=== PATIENT | female | born 1990 | race Caucasian/White ===

== ENCOUNTER 2017-01-07 23:48 | Emergency (ER) | payer OTHER ==
[~2017-01-07 23:48] MED LIST: SENN15TA PO
[2017-01-08 00:07] VITALS: BP 163/94
--- NOTE | 2017-01-08 00:27 | PHYS DOC ---
Past History Past Medical History: UTI Past Surgical History: , Tonsillectomy Smoking: Less than 1pk/day Alcohol Use: None Drug Use: None Adult General Chief Complaint Chief Complaint: ABDOMINAL PAIN HPI HPI Patient is a 26 year old female who presents with lower abdominal pain. Started on Saturday. No vaginal discharge. LMP 2 weeks ago. No fever. Had vomiting once yesterday and 4-5 loose stools yesterday; none today. No recent travel. Little sore throat. Review of Systems Review of Systems Constitutional: Denies fever or chills Eyes: Denies change in visual acuity, redness, or eye pain HENT: Denies nasal congestion; mild sore throat Respiratory: Denies cough or shortness of breath Cardiovascular: No chest pain GI: see HPI : Denies dysuria or hematuria Musculoskeletal: Denies back pain or joint pain Integument: Denies rash or skin lesions Neurologic: Denies headache, focal weakness or sensory changes Allergies Allergies Allergies Coded Allergies Type Severity Reaction Last Updated Verified cephalexin Allergy Severe "I GET HIVES REALLY BAD" 04/25/14 No Physical Exam Physical Exam Constitutional: Well developed, well nourished, no acute distress, non-toxic appearance. HENT: Normocephalic, atraumatic, bilateral external ears normal, oropharynx moist, no oral exudates, nose normal. Eyes: PERRLA, EOMI, conjunctiva normal, no discharge. Neck: Normal range of motion, no tenderness, supple, no stridor. Cardiovascular:Heart rate regular rhythm, no murmur Lungs & Thorax: Bilateral breath sounds clear to auscultation Abdomen: Bowel sounds normal, soft, no tenderness, no masses, no pulsatile masses. Minimal suprapubic pain on palpation Skin: Warm, dry, no erythema, no rash. Back: No tenderness, no CVA tenderness. Extremities: No tenderness, no cyanosis, no clubbing, ROM intact, no edema. Neurologic: Alert and oriented X 3, normal motor function, normal sensory function, no focal deficits noted. Psychologic: Affect normal, judgement normal, mood normal. Current Patient Data Vital Signs Vital Signs Date Time Temp Pulse Resp B/P (MAP) Pulse Ox O2 Delivery O2 Flow Rate FiO2 01/08/17 00:07 98.3 99 20 100 Room Air Lab Results Laboratory Tests Test 01/08/17 00:25 01/08/17 00:35 Urine Collection Type Unknown Urine Color Yellow Urine Clarity Hazy Urine pH 6.0 Urine Specific [place] 1.025 Urine Protein Trace Urine Glucose (UA) Neg mg/dL Urine Ketones (Stick) Neg mg/dL Urine Blood Neg Urine Nitrite Neg Urine Bilirubin Neg Urine Urobilinogen Dipstick 0.2 mg/dL Urine Leukocyte Esterase Neg Urine RBC 0 /HPF Urine WBC Rare /HPF Urine Squamous Epithelial Cells Mod /LPF Urine Bacteria 0 /HPF Bedside Urine HCG, Qualitative hcg negative Course & Med Decision Making Course & Med Decision Making Evaluated patient. No evidence of acute surgical abdomen on exam. Urine sent. At 0130 AM: UA negative and UCG negative. Repeat abdominal exam shows no rebound or guarding. She states she has had intermittent left lower quadrant pain for months. 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 return precautions given. Toradol 60 IM (she drove herself) Dragon Disclaimer Dragon Disclaimer This chart was dictated in whole or in part using Voice Recognition software in a busy, high-work load, and often noisy Emergency Department environment. It may contain unintended and wholly unrecognized errors or omissions. Departure Departure: Impression: Primary Impression: Abdominal pain Disposition: 01 HOME, SELF-CARE Condition: STABLE Referrals: LEANDRO RAMSEY (PCP) Patient Instructions: Abdominal Pain (Nonspecific) Scripts Naproxen (NAPROSYN) 500 Mg Tablet 1 TAB PO BID, #20 TAB Prov: OTIS DONALDSON MD 01/08/17 OTIS DONALDSON MD Jan 08, 2017 00:27
[2017-01-08 01:13] LABS: BILIRUBIN,URINE NEG (NEG); CLARITY,URINE HAZY; COLOR,URINE YELLOW; GLUCOSE,URINE NEG (NEG); NITRITE,URINE NEG (NEG); RBC,URINE 0 /HPF (0-2); UROBILINOGEN,URINE 0.2 mg/dL (0.2 mg/dL)
[2017-01-08 01:14] LABS: BACTERIA,URINE 0 /HPF (0-FEW); SQUAMOUS EPITHELIAL CELL,UR MOD /LPF; WBC,URINE RARE /HPF (0-4)
[2017-01-08] MEDS ORDERED: NAPR500T PO (01:30)
[2017-01-08] MEDS ORDERED: KETOROLAC 60 MG/2 ML VIAL. IM ONE (02:00)
== END 2017-01-08 01:40 | disposition home or self-care (01) ==
LOC: ER 23:48
DX: R10.30 Lower abdominal pain, unspecified (principal); R11.10 Vomiting, unspecified; R19.7 Diarrhea, unspecified; F17.200 Nicotine dependence, unspecified, uncomplicated; Z87.440 Personal history of urinary (tract) infections; Z88.1 Allergy status to other antibiotic agents
CPT/HCPCS: 81001; 81025; 96372; 99283; J1885

== ENCOUNTER 2018-02-25 18:45 | Emergency (ER) | payer OTHER ==
[~2018-02-25] VITALS: Ht 167.6 cm; Wt 112.7 kg
[~2018-02-25 18:45] MED LIST changes: +NAPR-683 PO
--- NOTE | 2018-02-25 18:48 | ED.ADGEN ---
Past History Past Medical History: UTI Past Surgical History: , Tonsillectomy Smoking: Less than 1pk/day Alcohol Use: None Drug Use: None Adult General Chief Complaint Chief Complaint ".. I got this rash all over... and it is itching.. and I think I may be again for the third time.." HPI HPI Patient is a 27 year old female who presents with above hx and complaints contact dermatitis on arms and legs. Patient has used a new aerosolized mist and did apply some to her skin. This before rash was noted on her arms and legs. Patient also reports she has not had a period for a month. Patient concerned she may be . No other changes in foods. Personal hygiene products or exposures. Review of Systems Review of Systems Constitutional: Denies fever or chills [] Eyes: Denies change in visual acuity, redness, or eye pain [] HENT: Denies nasal congestion or sore throat [] Respiratory: Denies cough or shortness of breath [] Cardiovascular: No additional information not addressed in HPI [] GI: Denies abdominal pain, nausea, vomiting, bloody stools or diarrhea [] : Denies dysuria or hematuria complaints she has not had a period past month Musculoskeletal: Denies back pain or joint pain [] Integument: Complains of a contact dermatitis on arms and legs Neurologic: Denies headache, focal weakness or sensory changes [] Endocrine: Denies polyuria or polydipsia [] All other systems were reviewed and found to be within normal limits, except as documented in this note. Family History Family History Noncontributory Current Medications Current Medications Current Medications Medications (Trade) Dose Ordered Sig/Zuri Start Time Stop Time Status Last Admin Dose Admin Famotidine (Pepcid) 20 mg 1X ONCE 02/25/18 19:15 02/25/18 19:16 DC 02/25/18 19:23 20 MG Nitrofurantoin Macrocrystals (Macrobid) 100 mg BID 02/25/18 21:00 UNV Allergies Allergies Allergies Coded Allergies Type Severity Reaction Last Updated Verified cephalexin Allergy Severe "I GET HIVES REALLY BAD" 04/25/14 No Physical Exam Physical Exam Constitutional: Well developed, well nourished, no acute distress, non-toxic appearance. [] HENT: Normocephalic, atraumatic, bilateral external ears normal, oropharynx moist, no oral exudates, nose normal. [] Eyes: PERRLA, EOMI, conjunctiva normal, no discharge. [] Neck: Normal range of motion, no tenderness, supple, no stridor. [] Cardiovascular:Heart rate regular rhythm, no murmur [] Lungs & Thorax: Bilateral breath sounds clear to auscultation [] Abdomen: Bowel sounds normal, soft, no tenderness, no masses, no pulsatile masses. [] Old scar Skin: Warm, dry, no erythema, contact dermatitis on arms and legs rash. [] Back: No tenderness, no CVA tenderness. [] Extremities: No tenderness, no cyanosis, no clubbing, ROM intact, no edema. [] Neurologic: Alert and oriented X 3, normal motor function, normal sensory function, no focal deficits noted. [] Psychologic: Affect anxious, judgement normal, mood normal. [] Current Patient Data Vital Signs Vital Signs Date Time Temp Pulse Resp B/P (MAP) Pulse Ox O2 Delivery O2 Flow Rate FiO2 02/25/18 19:06 98.3 113 18 99 Room Air Lab Results Laboratory Tests Test 02/25/18 18:22 02/25/18 18:54 POC Urine HCG, Qualitative hcg positive (Negative) Urine Collection Type Clean catch Urine Color Yellow Urine Clarity Hazy Urine pH 7.0 Urine Specific [place] 1.020 Urine Protein Neg (NEG-TRACE) Urine Glucose (UA) Neg mg/dL (NEG) Urine Ketones (Stick) Trace mg/dL (NEG) Urine Blood Trace (NEG) Urine Nitrite Neg (NEG) Urine Bilirubin Neg (NEG) Urine Urobilinogen Dipstick 1 mg/dL (0.2 mg/dL) Urine Leukocyte Esterase Trace (NEG) Urine RBC 1-2 /HPF (0-2) Urine WBC 1-4 /HPF (0-4) Urine Squamous Epithelial Cells Mod /LPF Urine Bacteria 0 /HPF (0-FEW) Urine Mucus Slight /LPF Urine Opiates Screen Neg (NEG) Urine Methadone Screen Neg (NEG) Urine Barbiturates Neg (NEG) Urine Phencyclidine Screen Neg (NEG) Urine Amphetamine/Methamphetamine Neg (NEG) Urine Benzodiazepines Screen Neg (NEG) Urine Cocaine Screen Neg (NEG) Urine Cannabinoids Screen Neg (NEG) Urine Ethyl Alcohol Neg (NEG) EKG EKG [] Radiology/Procedures Radiology/Procedures [] Course & Med Decision Making Course & Med Decision Making Pertinent Labs and Imaging studies reviewed. (See chart for details). Patient has stopped using the new aerosolizer and not apply to skin. Patient to take vitamins. Patient may take Tylenol for discomfort. Patient take Benadryl 4 times a day for itching. Patient take Zantac 150 twice day for 10 days. Follow-up primary care. Return if any concerns. Patient issued a prescription for Macrodantin for 3 days. Patient have repeat urine check on follow-up primary care or [employer]AIL PER[employer] SPECIALIST [] Final Impression Final Impression 1. Contact dermatitis 2. Positive urine test for 3. Possible UTI.[] Dragon Disclaimer Dragon Disclaimer This electronic medical record was generated, in whole or in part, using a voice recognition dictation system. JEN HALL MD Feb 25, 2018 18:47
[2018-02-25 19:06] VITALS: BP 138/72
[2018-02-25] MEDS ORDERED: FAMOTIDINE 20 MG TABLET PO ONE (19:15)
[2018-02-25] MEDS ORDERED: PNV1TABL34 PO (19:29)
[2018-02-25] MEDS ORDERED: RANI150T21 PO (19:29)
[2018-02-25 19:30] LABS: BARBITURATES NEG (NEG); BENZODIAZEPINES NEG (NEG); CANNABINOIDS NEG (NEG); COCAINE NEG (NEG); METHADONE NEG (NEG); OPIATES NEG (NEG); PHENCYCLIDINE NEG (NEG)
[2018-02-25 19:31] LABS: AMPHETAMINE/METHAMPHETAMINE NEG (NEG); BILIRUBIN,URINE NEG (NEG); CLARITY,URINE HAZY; COLOR,URINE YELLOW; GLUCOSE,URINE NEG (NEG)
[2018-02-25 19:32] LABS: BACTERIA,URINE 0 /HPF (0-FEW); NITRITE,URINE NEG (NEG); SQUAMOUS EPITHELIAL CELL,UR MOD /LPF; UROBILINOGEN,URINE 1 mg/dL (0.2 mg/dL)
[2018-02-25] MEDS ORDERED: NITR100C62 PO (19:39)
[2018-02-25] MEDS ORDERED: NITROFURANTOIN MONOHYD/M-CRYST 100 MG CAPSULE. PO ONE (20:00)
[2018-02-25] MEDS ORDERED: NITROFURANTOIN MONOHYD/M-CRYST 100 MG CAPSULE. PO SCH (21:00)
== END 2018-02-25 19:48 | disposition home or self-care (01) ==
LOC: ER 18:45
DX: L25.9 Unspecified contact dermatitis, unspecified cause (principal); Z32.01 Encounter for pregnancy test, result positive; F17.200 Nicotine dependence, unspecified, uncomplicated; Z87.440 Personal history of urinary (tract) infections; Z98.890 Other specified postprocedural states; Z88.1 Allergy status to other antibiotic agents
CPT/HCPCS: 36415; 80307; 81001; 81025; 87086; 99284; G0479

== ENCOUNTER 2018-10-19 14:44 | Emergency (ER) | payer OTHER ==
[~2018-10-19] VITALS: Ht 167.6 cm; Wt 88.5 kg
[~2018-10-19 14:44] MED LIST changes: +NITR100C62 PO; +PNV1TABL34 PO; +RANI150T21 PO
[2018-10-19 14:56] VITALS: BP 136/75
--- NOTE | 2018-10-19 15:12 | PHYS DOC ---
Past History Past Medical History: No Pertinent History Past Surgical History: , Tonsillectomy, Other Smoking: Less than 1pk/day Alcohol Use: Rarely Drug Use: None Adult General Chief Complaint Chief Complaint: WOUND CHECK HPI HPI Patient is a 89-year-old female presents with drainage from incision site. Patient has on 11 Oct 2018. Reports that the drainage happened just prior to arrival. There was "a lot" and that it appeared milky in color. Denies any bleeding. Notes that her temperature was 99. Drainage has subsequently improved. Nothing seems to make it better or worse. Patient denies any significant pain. Denies any redness.[] Review of Systems Review of Systems Constitutional: Denies fever or chills [] Eyes: Denies change in visual acuity, redness, or eye pain [] HENT: Denies nasal congestion or sore throat [] Respiratory: Denies cough or shortness of breath [] Cardiovascular: No chest pain or palpitations[] GI: Denies abdominal pain, nausea, vomiting, bloody stools or diarrhea [] : Denies dysuria or hematuria [] Musculoskeletal: Denies back pain or joint pain [] Integument: Denies rash or skin lesions, see history of present illness [] Neurologic: Denies headache, focal weakness or sensory changes [] Endocrine: Denies polyuria or polydipsia [] All other systems were reviewed and found to be within normal limits, except as documented in this note. Allergies Allergies Allergies Coded Allergies Type Severity Reaction Last Updated Verified cephalexin Allergy Severe "I GET HIVES REALLY BAD" 04/25/14 No Physical Exam Physical Exam Constitutional: Well developed, well nourished, no acute distress, non-toxic appearance. [] HENT: Normocephalic, atraumatic, bilateral external ears normal, oropharynx moist, no oral exudates, nose normal. [] Eyes: PERRLA, EOMI, conjunctiva normal, no discharge. [] Neck: Normal range of motion, no tenderness, supple, no stridor. [] Cardiovascular:Heart rate regular rhythm, no murmur [] Lungs & Thorax: Bilateral breath sounds clear to auscultation [] Abdomen: Bowel sounds normal, soft, no tenderness, no masses, no pulsatile masses. [] Skin: Warm, dry, no erythema, no rash. IncisionC-section, appears clean and dry. There is significant drainage, no wound dehiscence noted.. [] Back: No tenderness, no CVA tenderness. [] Extremities: No tenderness, no cyanosis, no clubbing, ROM intact, no edema. [] Neurologic: Alert and oriented X 3, normal motor function, normal sensory function, no focal deficits noted. [] Psychologic: Affect normal, judgement normal, mood normal. [] Current Patient Data Vital Signs Vital Signs Date Time Temp Pulse Resp B/P (MAP) Pulse Ox O2 Delivery O2 Flow Rate FiO2 10/19/18 14:56 98.5 72 20 99 Room Air EKG EKG [] Radiology/Procedures Radiology/Procedures PROCEDURE: ABDOMEN LTD INDICATION: Drainage from section site COMPARISON: None. FINDINGS: Focused ultrasound images obtained through the subcutaneous soft tissues at the section incision site. No drainable fluid collection is identified within the subcutaneous fat at the incision site. IMPRESSION: 1. No drainable fluid collection at the subcutaneous fat of the section incision site.[] Course & Med Decision Making Course & Med Decision Making Pertinent Labs and Imaging studies reviewed. (See chart for details) ED course: Patient arrived, was placed in bed, and and tolerated exam well. She was transferred to and from [facility] with any complications. After return of the laboratory and imaging. His, these were discussed with the patient voiced understanding. All questions were answered. Patient was discharged in improved condition. Medical decision making:: Believe the fluid to be a seroma which does not appear on ultrasound. No evidence of wound dehiscence. No evidence of infection.[] Dragon Disclaimer Dragon Disclaimer This electronic medical record was generated, in whole or in part, using a voice recognition dictation system. Departure Departure: Impression: Primary Impression: Visit for wound check Additional Impression: Seroma Disposition: HOME, SELF-CARE Condition: IMPROVED Referrals: PCP,NO (PCP) Patient Instructions: Wound Care, [id number] Additional Instructions: Follow-up with the [facility] [employer] [employer] that performed the procedure tomorrow. Return to the ER if worsening pain, more fluid leaks, increasing redness, you develop a fever of more than 101, or any other concerns. Problem Qualifiers GILDARDO RICHEY DO October 19, 2018 15:12
[2018-10-19 15:37] LABS: BASO % 0 % (0-3); EOS # 0.1 x10^3/uL (0.0-0.7); EOS % 1 % (0-3); HEMATOCRIT 32.1 % (36.0-47.0); HEMOGLOBIN 10.6 g/dL (12.0-15.5); LYMPH # 3.4 x10^3/uL (1.0-4.8); LYMPH % 34 % (24-48); MEAN CORPUSCULAR HEMOGLOBIN 27 pg (25-35); MEAN CORPUSCULAR HGB CONC 33 g/dL (31-37); MEAN CORPUSCULAR VOLUME 83 fL (79-100); MONO % 10 % (0-9); NEUT # 5.4 x10^3uL (1.8-7.7); NEUT % 54 % (31-73); PLATELET COUNT 424 x10^3/uL (140-400); RED BLOOD COUNT 3.87 x10^6/uL (3.50-5.40); RED CELL DISTRIBUTION WIDTH 13.9 % (11.5-14.5)
[2018-10-19 15:51] LABS: CALCIUM 8.8 mg/dL (8.5-10.1); CREATININE 0.8 mg/dL (0.6-1.0); GFR 84.8; POTASSIUM 4.1 mmol/L (3.5-5.1)
--- NOTE | 2018-10-19 18:02 | RAD ---
INDICATION: Drainage from section site COMPARISON: None. FINDINGS: Focused ultrasound images obtained through the subcutaneous soft tissues at the section incision site. No drainable fluid collection is identified within the subcutaneous fat at the incision site. IMPRESSION: 1. No drainable fluid collection at the subcutaneous fat of the section incision site. Electronically signed by: Sourav Avila MD (10/19/2018 5:59 PM) [facility]
== END 2018-10-19 18:27 | disposition home or self-care (01) ==
LOC: ER 14:44
DX: Z48.01 Encounter for change or removal of surgical wound dressing (principal); K91.872 Postprocedural seroma of a digestive system organ or structure following a digestive system procedure; F17.200 Nicotine dependence, unspecified, uncomplicated; Z88.1 Allergy status to other antibiotic agents
CPT/HCPCS: 36415; 76705; 80048; 85025; 87040; 99285

== ENCOUNTER 2018-12-07 18:33 | Emergency (ER) | payer OTHER ==
[~2018-12-07] VITALS: Ht 320 cm; Wt 88.5 kg
[~2018-12-07 18:33] MED LIST changes: +RANI-376 PO; -RANI150T21 PO
--- NOTE | 2018-12-07 19:16 | PHYS DOC ---
Past History Past Medical History: No Pertinent History Past Surgical History: , Tonsillectomy, Other Smoking: Less than 1pk/day Alcohol Use: Rarely Drug Use: None Adult General Chief Complaint Chief Complaint: SORE THROAT HPI HPI 28-year-old female presents with 2 day history of sore throat and fever. She developed a fever yesterday. She had a fever up to 104 today. It has been amenable to Tylenol. Her last dose was 1 hour prior to arrival. The patient has had increasing sore throat over the same time. It is painful to swallow both solids and liquids. Her younger daughter is also having a sore throat. Patient has no other concerns or complaints. Review of Systems Review of Systems Constitutional: Fever[] Eyes: Denies change in visual acuity, redness, or eye pain [] HENT: sore throat [] Respiratory: Denies cough or shortness of breath [] Cardiovascular: No additional information not addressed in HPI [] GI: Denies abdominal pain, nausea, vomiting, bloody stools or diarrhea [] : Denies dysuria or hematuria [] Musculoskeletal: Denies back pain or joint pain [] Integument: Denies rash or skin lesions [] Neurologic: Denies headache, focal weakness or sensory changes [] Endocrine: Denies polyuria or polydipsia [] All other systems were reviewed and found to be within normal limits, except as documented in this note. Allergies Allergies Allergies Coded Allergies Type Severity Reaction Last Updated Verified cephalexin Allergy Severe "I GET HIVES REALLY BAD" 04/25/14 No Physical Exam Physical Exam Constitutional: Well developed, well nourished, no acute distress, non-toxic appearance. [] HENT: Normocephalic, atraumatic, bilateral external ears normal, oropharynx e rythematous with tonsillar exudates, nose normal. [] Eyes: PERRLA, EOMI, conjunctiva normal, no discharge. [] Neck: Normal range of motion, no tenderness, supple, no stridor. [] Cardiovascular:Heart rate regular rhythm, no murmur [] Lungs & Thorax: Bilateral breath sounds clear to auscultation [] Abdomen: Bowel sounds normal, soft, no tenderness, no masses, no pulsatile masses. [] Skin: Warm, dry, no erythema, no rash. [] Back: No tenderness, no CVA tenderness. [] Extremities: No tenderness, no cyanosis, no clubbing, ROM intact, no edema. [] Neurologic: Alert and oriented X 3, normal motor function, normal sensory function, no focal deficits noted. [] Psychologic: Affect normal, judgement normal, mood normal. [] Current Patient Data Vital Signs Vital Signs Date Time Temp Pulse Resp B/P (MAP) Pulse Ox O2 Delivery O2 Flow Rate FiO2 12/07/18 18:45 Room Air 12/07/18 18:45 99.0 93 20 97 EKG EKG [] Radiology/Procedures Radiology/Procedures [] Course & Med Decision Making Course & Med Decision Making Pertinent Labs and Imaging studies reviewed. (See chart for details) Patient's rapid strep was negative however her exam is quite suspicious for strep pharyngitis. This coupled with her fever, makes me more concerned. I will treat her with antibiotics. Patient has elected for Bicillin injection. [] Dragon Disclaimer Dragon Disclaimer This electronic medical record was generated, in whole or in part, using a voice recognition dictation system. Departure Departure: Impression: Primary Impression: Strep pharyngitis Disposition: HOME, SELF-CARE Condition: STABLE Referrals: PCP,JUDITH (PCP) Patient Instructions: Strep Throat, [id number] RAMBO PETIT DO Dec 07, 2018 19:16
[2018-12-07] MEDS ORDERED: PENICILLIN G BENZATHINE LA 1,200,000 UNIT/2 ML DISP.SYRIN. IM ONE (20:00)
[2018-12-07 20:20] VITALS: BP 114/52
== END 2018-12-07 20:19 | disposition home or self-care (01) ==
LOC: ER 18:33
DX: J02.0 Streptococcal pharyngitis (principal); B95.0 Streptococcus, group A, as the cause of diseases classified elsewhere; Z90.89 Acquired absence of other organs; F17.200 Nicotine dependence, unspecified, uncomplicated; Z88.1 Allergy status to other antibiotic agents
CPT/HCPCS: 87070; 87880; 96372; 99284; J0561

== ENCOUNTER 2019-03-12 13:16 | Emergency (ER) | payer OTHER ==
[~2019-03-12] VITALS: Ht 167.6 cm; Wt 99.8 kg
[2019-03-12 13:31] VITALS: BP 126/98
--- NOTE | 2019-03-12 13:53 | RAD ---
FOOT LEFT 3V, KNEE LEFT 3V History: Fell a few hours ago. Pain.. 3 view left knee No evidence of acute fracture. No aggressive bone destruction. Joint spaces are intact. No significant soft tissue abnormality. IMPRESSION: No acute radiographic abnormality. 3V left foot No evidence of acute fracture. Joint spaces and alignment appear intact. Small calcaneal enthesophytes are noted. No significant soft tissue abnormality. IMPRESSION: No evidence of acute fracture or dislocation. Consider follow-up radiographs of symptoms do not improve. Electronically signed by: Javi Shukla MD (03/12/2019 1:49 PM) [facility]
--- NOTE | 2019-03-12 13:58 | PHYS DOC ---
Past History Past Medical History: No Pertinent History Past Surgical History: , Tonsillectomy, Other Additional Past Surgical Histo: PARTIAL HYSTERECTOMY Smoking: Less than 1pk/day Alcohol Use: Occasionally Drug Use: None Adult General Chief Complaint Chief Complaint: KNEE INJURY HPI HPI 28-year-old female presents with left knee pain. The patient was standing on a chair hanging Halloween decoration when she slipped and fell into the chair and onto some other chairs, then the concrete patio. He now has left medial knee pain and medial left foot pain. Pain is worse with movement and better with rest. She is able to walk. She denies any other injuries or complaints. She did not hit her head. She did not lose consciousness. Review of Systems Review of Systems Constitutional: Denies fever or chills [] Eyes: Denies change in visual acuity, redness, or eye pain [] HENT: Denies nasal congestion or sore throat [] Respiratory: Denies cough or shortness of breath [] Cardiovascular: No additional information not addressed in HPI [] GI: Denies abdominal pain, nausea, vomiting, bloody stools or diarrhea [] : Denies dysuria or hematuria [] Musculoskeletal: Left knee pain[] Integument: Denies rash or skin lesions [] Neurologic: Denies headache, focal weakness or sensory changes [] Endocrine: Denies polyuria or polydipsia [] All other systems were reviewed and found to be within normal limits, except as documented in this note. Allergies Allergies Allergies Coded Allergies Type Severity Reaction Last Updated Verified cephalexin Allergy Severe "I GET HIVES REALLY BAD" 04/25/14 No Physical Exam Physical Exam Constitutional: Well developed, well nourished, no acute distress, non-toxic appearance. [] HENT: Normocephalic, atraumatic, bilateral external ears normal, oropharynx m oist, no oral exudates, nose normal. [] Eyes: PERRLA, EOMI, conjunctiva normal, no discharge. [] Neck: Normal range of motion, no tenderness, supple, no stridor. [] Cardiovascular:Heart rate regular rhythm, no murmur [] Lungs & Thorax: Bilateral breath sounds clear to auscultation [] Abdomen: Bowel sounds normal, soft, no tenderness, no masses, no pulsatile masses. [] Skin: Warm, dry, no erythema, no rash. [] Back: No tenderness, no CVA tenderness. [] Extremities: Mild tenderness over the left medial collateral ligament; all ligaments with good end feel, no laxity. Mild bruising of the medial left foot, no obvious deformity.[] Neurologic: Alert and oriented X 3, normal motor function, normal sensory function, no focal deficits noted. [] Psychologic: Affect normal, judgement normal, mood normal. [] Current Patient Data Vital Signs Vital Signs Date Time Temp Pulse Resp B/P (MAP) Pulse Ox O2 Delivery O2 Flow Rate FiO2 03/12/19 13:31 98.1 92 18 98 Room Air EKG EKG [] Radiology/Procedures Radiology/Procedures [] Impressions: FOOT LEFT 3V, KNEE LEFT 3V History: Fell a few hours ago. Pain.. 3 view left knee No evidence of acute fracture. No aggressive bone destruction. Joint spaces are intact. No significant soft tissue abnormality. IMPRESSION: No acute radiographic abnormality. 3V left foot No evidence of acute fracture. Joint spaces and alignment appear intact. Small calcaneal enthesophytes are noted. No significant soft tissue abnormality. IMPRESSION: No evidence of acute fracture or dislocation. Consider follow-up radiographs of symptoms do not improve. Electronically signed by: Dixon Shukla MD (03/12/2019 1:49 PM) [facility] DICTATED AND SIGNED BY: DIXON SHUKLA MD DATE: 03/12/19 1349 CC: RAMBO PETIT DO; PCP,NO ~ Course & Med Decision Making Course & Med Decision Making Pertinent Labs and Imaging studies reviewed. (See chart for details) Patient's x-rays are negative for fracture. Based on my physical exam, I do not believe the patient is likely to have a ligament tear. I cannot rule out a meniscal tear. Told patient to use conservative therapy such as rest, ice, elevation and compression as needed. Not improve within a week, she should seek further evaluation by orthopedics. She states verbal understanding. She is stable for discharge at this time. [] Dragon Disclaimer Dragon Disclaimer This electronic medical record was generated, in whole or in part, using a voice recognition dictation system. Departure Departure: Impression: Primary Impression: Left knee pain Additional Impression: Fall from chair, initial encounter Disposition: 01 HOME, SELF-CARE Condition: STABLE Referrals: PCP,NO (PCP) Patient Instructions: Knee Pain, [id number] Problem Qualifiers Primary Impression: Left knee pain Chronicity: acute Qualified Codes: M25.562 - Pain in left knee RAMBO PETIT DO Mar 12, 2019 13:58
== END 2019-03-12 14:33 | disposition home or self-care (01) ==
LOC: ER 13:16
DX: M25.562 Pain in left knee (principal); F17.200 Nicotine dependence, unspecified, uncomplicated; Z88.1 Allergy status to other antibiotic agents; W07.XXXA Fall from chair, initial encounter; Y93.89 Activity, other specified; Y92.89 Other specified places as the place of occurrence of the external cause; Y99.8 Other external cause status
CPT/HCPCS: 73562; 73630; 99284

== ENCOUNTER 2019-04-13 12:02 | Emergency (ER) | payer OTHER ==
[~2019-04-13] VITALS: Ht 167.6 cm; Wt 110.0 kg
--- NOTE | 2019-04-13 12:28 | PHYS DOC ---
Past History Past Medical History: No Pertinent History Past Surgical History: , Tonsillectomy, Other Additional Past Surgical Histo: PARTIAL HYSTERECTOMY Smoking: Less than 1pk/day Alcohol Use: Occasionally Drug Use: None Adult General Chief Complaint Chief Complaint: BREAST PAIN/INJURY HPI HPI Patient is a 28-year-old female who presents with rash over top of both breasts. Patient first noticed rash 2 weeks ago. She states she recently changed undergarments. Rash occasionally itches describes as burning. It is not appeared to be spreading. No lumps or masses. No other symptoms or complaints. No medications taken prior to ED arrival. Patient has not been evaluated by her primary care physician for this complaint.[] Review of Systems Review of Systems Review symptoms as per history of present illness. All other review symptoms are negative.] All other systems were reviewed and found to be within normal limits, except as documented in this note. Allergies Allergies Allergies Coded Allergies Type Severity Reaction Last Updated Verified cephalexin Allergy Severe "I GET HIVES REALLY BAD" 04/25/14 No Physical Exam Physical Exam Constitutional: Well developed, well nourished, no acute distress, non-toxic appearance. [] HENT: Normocephalic, atraumatic, bilateral external ears normal, oropharynx moist, no oral exudates, nose normal. [] Eyes: PERRLA, EOMI, conjunctiva normal, no discharge. [] ] Breasts: Large symmetric pendulous breasts with fine nikos around upper upper pole of both breasts around areola. No tenderness, induration, swelling, bruising or cellulitis. [] Extremities: No tenderness, no cyanosis, no clubbing, ROM intact, no edema. [] Neurologic: Alert and oriented X 3, normal motor function, normal sensory function, no focal deficits noted. [] Psychologic: Affect normal, judgement normal, mood normal. [] EKG EKG [] Radiology/Procedures Radiology/Procedures [] Course & Med Decision Making Course & Med Decision Making Pertinent Labs and Imaging studies reviewed. (See chart for details) [No excessive cellulitis or abscess on breast exam. Recommendations are to follow-up with PCP or PORTABLE IRRIGATION OPERATOR for further evaluation and management.] Dragon Disclaimer Dragon Disclaimer This electronic medical record was generated, in whole or in part, using a voice recognition dictation system. Departure Departure: Impression: Primary Impression: Abnormal breast exam Disposition: HOME/RESIDENCE PRIOR TO ADM Condition: STABLE Patient Instructions: Rash Additional Instructions: You were evaluated in the emergency department for a breast rash. The cause of your symptoms has not been determined. Please ibuprofen for pain and Benadryl as needed for itching. Follow-up with local PCP or PORTABLE IRRIGATION OPERATOR for reevaluation. RAMBO HERNANDEZ DO Apr 13, 2019 12:28
== END 2019-04-13 12:46 | disposition home or self-care (01) ==
LOC: ER 12:02
DX: R92.8 Other abnormal and inconclusive findings on diagnostic imaging of breast (principal); N64.89 Other specified disorders of breast; F17.200 Nicotine dependence, unspecified, uncomplicated; Z88.1 Allergy status to other antibiotic agents
CPT/HCPCS: 99281

== ENCOUNTER 2020-01-28 10:39 | Emergency (ER) | payer OTHER ==
[~2020-01-28] VITALS: Ht 165.1 cm; Wt 100.0 kg
[2020-01-28 10:44] VITALS: BP 143/84
[2020-01-28] MEDS ORDERED: CHLO25CA9 PO (11:23)
--- NOTE | 2020-01-28 11:24 | PHYS DOC ---
Past History Past Medical History: No Pertinent History Past Surgical History: No Surgical History, Additional Past Surgical Histo: PARTIAL HYSTERECTOMY Smoking: Less than 1pk/day Alcohol Use: Rarely Drug Use: None General Adult EDM: Chief Complaint: WITHDRAWAL HPI: HPI: 29-year-old female presents with concern for alcohol withdrawal. The patient has been drinking whiskey in large quantities every day for at least the last 2 weeks. She decided to quit drinking yesterday. She felt sweaty and irritated more yesterday than today, but she knows that withdrawal can last for a few days and that it can be dangerous. She wanted medical advice about managing w ithdrawal. She also stopped smoking cigarettes at the same time. Other than being mildly jittery, she denies any other symptoms such as high heart rate, sweating, hallucinations. Review of Systems: Review of Systems: Constitutional: Denies fever or chills Eyes: Denies change in visual acuity HENT: Denies nasal congestion or sore throat Respiratory: Denies cough or shortness of breath Cardiovascular: Denies chest pain or edema GI: Denies abdominal pain, nausea, vomiting, bloody stools or diarrhea : Denies dysuria Musculoskeletal: Denies back pain or joint pain Integument: Denies rash Neurologic: Denies headache, focal weakness or sensory changes Endocrine: Denies polyuria or polydipsia Lymphatic: Denies swollen glands Psychiatric: Mild irritability with anxiety Heart Score: Risk Factors: Risk Factors: DM, Current or recent (<one month) smoker, HTN, HLP, family history of CAD, obesity. Risk Scores: Score 0 - 3: 2.5% MACE over next 6 weeks - Discharge Home Score 4 - 6: 20.3% MACE over next 6 weeks - Admit for Clinical Observation Score 7 - 10: 72.7% MACE over next 6 weeks - Early Invasive Strategies Allergies: Allergies: Allergies Coded Allergies Type Severity Reaction Last Updated Verified cephalexin Allergy Severe "I GET HIVES REALLY BAD" 04/25/14 No Physical Exam: PE: Constitutional: Well developed, well nourished, obese, no acute distress, non- toxic appearance. [] HENT: Normocephalic, atraumatic, bilateral external ears normal, oropharynx moist, no oral exudates, nose normal. [] Eyes: PERRLA, EOMI, conjunctiva normal, no discharge. [] Neck: Normal range of motion, no tenderness, supple, no stridor. [] Cardiovascular: Heart rate 86, regular rhythm, no murmur [] Lungs & Thorax: Bilateral breath sounds clear to auscultation [] Abdomen: Bowel sounds normal, soft, no tenderness, no masses, no pulsatile masses. [] Skin: Warm, dry, no erythema, no rash. [] Back: No tenderness, no CVA tenderness. [] Extremities: No tenderness, no cyanosis, no clubbing, ROM intact, no edema. [] Neurologic: Alert and oriented X 3, normal motor function, normal sensory function, no focal deficits noted. [] Psychologic: Affect normal, judgement normal, mood anxious. [] Current Patient Data: Vital Signs: Vital Signs Date Time Temp Pulse Resp B/P (MAP) Pulse Ox O2 Delivery O2 Flow Rate FiO2 01/28/20 10:44 98.4 97 16 143/84 (103) 96 Room Air EKG: EKG: [] Radiology/Procedures: Radiology/Procedures: [] Course & Med Decision Making: Course & Med Decision Making Pertinent Labs and Imaging studies reviewed. (See chart for details) The patient does not have a primary care physician to follow-up with. I told her I was willing to provide her a couple of days of Librium, but I strongly emphasized multiple times that she cannot drink alcohol and take Librium at the same time. I explained that it stays in her system for several days. She states that she is committed to not drinking anymore alcohol. She understands the risk of drinking and taking Librium. She will hold off on filling the prescription unless more symptoms develop, but she would like to have the prescription available. I believe this is reasonable. She is stable for discharge at this time. [] Dragon Disclaimer: Jason Disclaimer: This electronic medical record was generated, in whole or in part, using a voice recognition dictation system. Departure Departure: Impression: Primary Impression: Alcohol withdrawal Qualified Codes: F10.230 - Alcohol dependence with withdrawal, uncomplicated Disposition: 01 HOME/RESIDENCE PRIOR TO ADM Condition: STABLE Referrals: PCP,NO (PCP) Patient Instructions: Alcohol Withdrawal, [id number] Scripts Chlordiazepoxide Hcl (CHLORDIAZEPOXIDE HCL) 25 Mg Capsule 25 MG PO BID for alcohol withdrawal for 4 Days, #6 CAP Take 1 capsule twice a day for 2 days, then 1 capsule once a day for 2 days. Prov: RAMBO PETIT DO 01/28/20 Justification of Admission: Justification of Admission: Justification of Admission Dx: N/A RAMBO PETIT DO Jan 28, 2020 11:24
== END 2020-01-28 11:26 | disposition home or self-care (01) ==
LOC: ER 10:39
DX: F10.230 Alcohol dependence with withdrawal, uncomplicated (principal); F17.200 Nicotine dependence, unspecified, uncomplicated; Z98.890 Other specified postprocedural states; Z90.710 Acquired absence of both cervix and uterus; Z88.1 Allergy status to other antibiotic agents; Y90.9 Presence of alcohol in blood, level not specified
CPT/HCPCS: 99283

== ENCOUNTER 2020-05-03 21:11 | Emergency (ER) | payer OTHER ==
[~2020-05-03] VITALS: Ht 165.1 cm; Wt 103.4 kg
[~2020-05-03 21:11] MED LIST changes: +CHLO25CA9 PO
[2020-05-03 21:24] VITALS: BP 134/76
--- NOTE | 2020-05-03 21:42 | PHYS DOC ---
Past History Past Medical History: No Pertinent History Past Surgical History: Additional Past Surgical Histo: PARTIAL HYSTERECTOMY Smoking: Less than 1pk/day Alcohol Use: None Drug Use: None General Adult EDM: Chief Complaint: CHEST PAIN HPI: HPI: Patient is a 30-year-old female coming in for left anterior chest pain starting about 3 days ago. Patient states that this morning she started having pain r adiating down her left arm which she describes as dull. Says it is pretty much gone now. The night prior to the pain starting she had a friend walking on her back to try to pop it but denies feeling any popping or pain in her chest at night. Denies any cough, shortness of breath. No past medical history. No significant family medical history for heart disease or blood clots. Denies any lower extremity edema. Denies any changes in urination, nausea, vomiting, diaphoresis. Has had BTL and does not use hormonal contraception. Smokes about a pack of cigarettes a day, denies any drug or alcohol use. Took aspirin today for the pain Review of Systems: Review of Systems: Negative except for what is listed in HPI Allergies: Allergies: Allergies Coded Allergies Type Severity Reaction Last Updated Verified cephalexin Allergy Severe "I GET HIVES REALLY BAD" 04/25/14 No Physical Exam: PE: Constitutional: Well developed, well nourished, no acute distress, non-toxic appearance. [] HENT: Normocephalic, atraumatic, bilateral external ears normal, oropharynx moist, no oral exudates, nose normal. [] Eyes: PERRLA, EOMI, conjunctiva normal, no discharge. [] Neck: Normal range of motion, no tenderness, supple, no stridor. [] Cardiovascular:Heart rate regular rhythm, no murmur [] Lungs & Thorax: Bilateral breath sounds clear to auscultation [] Abdomen: Bowel sounds normal, soft, no tenderness, no masses, no pulsatile masses. [] Skin: Warm, dry, no erythema, no rash. [] Back: No tenderness, no CVA tenderness. [] Extremities: No tenderness, no cyanosis, no clubbing, ROM intact, no edema. [] Dull left upper extremity pain Neurologic: Alert and oriented X 3, normal motor function, normal sensory function, no focal deficits noted. [] Psychologic: Affect normal, judgement normal, mood normal. [] Current Patient Data: Vital Signs: Vital Signs Date Time Temp Pulse Resp B/P (MAP) Pulse Ox O2 Delivery O2 Flow Rate FiO2 05/03/20 21:24 97.8 102 16 134/76 (95) 98 Room Air EKG: EKG: Sinus tachycardia, heart rate 102, normal axis, no ectopy, normal intervals, no ST elevation or depression [] Radiology/Procedures: Radiology/Procedures: Exam: Chest 2 views INDICATION: Left chest TECHNIQUE: Frontal and lateral views the chest Comparisons: None FINDINGS: The cardiomediastinal silhouette and pulmonary vessels are within normal limits. The lung and pleural spaces are clear. IMPRESSION: No acute cardiopulmonary process. [] Heart Score: Risk Factors: Risk Factors: DM, Current or recent (<one month) smoker, HTN, HLP, family history of CAD, obesity. Risk Scores: Score 0 - 3: 2.5% MACE over next 6 weeks - Discharge Home Score 4 - 6: 20.3% MACE over next 6 weeks - Admit for Clinical Observation Score 7 - 10: 72.7% MACE over next 6 weeks - Early Invasive Strategies Course & Med Decision Making: Course & Med Decision Making Pertinent Labs and Imaging studies reviewed. (See chart for details) Labs and work-up unremarkable, pain likely due to chest wall tenderness from having her friend walked her back the day before. [] Dragon Disclaimer: Dragon Disclaimer: This electronic medical record was generated, in whole or in part, using a voice recognition dictation system. Departure Departure: Impression: Primary Impression: Chest wall pain Disposition: 01 DC HOME SELF CARE/HOMELESS Condition: STABLE Referrals: PCP,NO (PCP) Patient Instructions: Chest Wall Pain Additional Instructions: Take Tylenol or ibuprofen as needed for pain. MARLEN ALLEN MD May 03, 2020 21:42
[2020-05-03 22:13] LABS: BASO # 0.1 x10^3/uL (0.0-0.2); BASO % 1 % (0-3); EOS # 0.3 x10^3/uL (0.0-0.7); EOS % 3 % (0-3); HEMATOCRIT 40.2 % (36.0-47.0); HEMOGLOBIN 12.9 g/dL (12.0-15.5); LYMPH # 4.3 x10^3/uL (1.0-4.8); LYMPH % 37 % (24-48); MEAN CORPUSCULAR HEMOGLOBIN 28 pg (25-35); MEAN CORPUSCULAR HGB CONC 32 g/dL (31-37); MEAN CORPUSCULAR VOLUME 88 fL (79-100); MONO # 0.6 x10^3/uL (0.0-1.1); MONO % 5 % (0-9); NEUT # 6.5 x10^3uL (1.8-7.7); NEUT % 55 % (31-73); PLATELET COUNT 321 x10^3/uL (140-400); RED BLOOD COUNT 4.58 x10^6/uL (3.50-5.40); RED CELL DISTRIBUTION WIDTH 14.4 % (11.5-14.5); WHITE BLOOD COUNT 11.9 x10^3/uL (4.0-11.0)
--- NOTE | 2020-05-03 22:13 | RAD ---
Exam: Chest 2 views INDICATION: Left chest TECHNIQUE: Frontal and lateral views the chest Comparisons: None FINDINGS: The cardiomediastinal silhouette and pulmonary vessels are within normal limits. The lung and pleural spaces are clear. IMPRESSION: No acute cardiopulmonary process. Electronically signed by: Nuno Winchester MD (05/03/2020 10:10 PM) ТАТЬЯНА
[2020-05-03 22:20] LABS: CALCIUM 8.9 mg/dL (8.5-10.1); CREATININE 0.9 mg/dL (0.6-1.0); POTASSIUM 3.9 mmol/L (3.5-5.1)
[2020-05-03 22:26] LABS: ALBUMIN 3.8 g/dL (3.4-5.0); ALBUMIN/GLOBULIN RATIO 1.1 (1.0-1.7); TOTAL BILIRUBIN 0.2 mg/dL (0.2-1.0); TOTAL PROTEIN 7.4 g/dL (6.4-8.2)
--- NOTE | 2020-05-03 23:29 | EKG ---
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
== END 2020-05-03 22:43 | disposition home or self-care (01) ==
LOC: ER 21:11
DX: R07.89 Other chest pain (principal); M79.602 Pain in left arm; F17.210 Nicotine dependence, cigarettes, uncomplicated; Z88.1 Allergy status to other antibiotic agents
CPT/HCPCS: 36415; 71046; 80053; 84484; 85025; 85379; 93005; 99285

== ENCOUNTER 2021-06-07 08:48 | Emergency (ER) | payer OTHER ==
[~2021-06-07] VITALS: Ht 165.1 cm; Wt 100.0 kg
--- NOTE | 2021-06-07 09:43 | EKG ---
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
--- NOTE | 2021-06-07 10:38 | RAD ---
EXAMINATION: Chest radiograph. VIEWS: Single AP view of the chest COMPARISON: 05/03/2020 INDICATION:31 years, Female, chest pain. FINDINGS: Normal cardiomediastinal silhouette. No focal consolidation. No pleural effusion or pneumothorax. No acute osseous process. IMPRESSION: No acute cardiopulmonary process. Electronically signed by: Tashi Carson DO (06/07/2021 10:36 AM) [id number]
--- NOTE | 2021-06-07 10:44 | PHYS DOC ---
Past History Past Medical History: No Pertinent History Past Surgical History: , Tonsillectomy Additional Past Surgical Histo: PARTIAL HYSTERECTOMY Smoking: Less than 1pk/day Alcohol Use: None Drug Use: None General Adult EDM: Chief Complaint: CHEST PAIN HPI: HPI: Patient is a 31 year old female with no past medical history who presents with right-sided axillary and chest pain. Patient states it began 3 days ago, and has progressively worsened since. She rates her pain constant 36/10 and describes it as "deep, dull ache." Patient denies any exertion or strenuous activity prior to symptom onset. 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 Patient denies fever, chills, weakness, diaphoresis, abdominal pain, NVD. Review of Systems: Review of Systems: Constitutional: See HPI Eyes: Denies change in visual acuity HENT: Denies nasal congestion or sore throat Respiratory: Denies cough or shortness of breath Cardiovascular: See HPI GI: See HPI Musculoskeletal: See HPI Integument: Denies rash or other skin lesions Allergies: Allergies: Allergies Coded Allergies Type Severity Reaction Last Updated Verified cephalexin Allergy Severe "I GET HIVES REALLY BAD" 04/25/14 No Physical Exam: PE: Constitutional: Obese, well groomed, no acute distress, non-toxic appearance. Neck: Normal range of motion, no step-off, no tenderness, no JVD. Cardiovascular: Heart rate regular rhythm, no murmur. Lungs & Thorax: Bilateral breath sounds clear to auscultation. Skin: Warm, dry, no erythema, no rash. Extremities: No tenderness, no cyanosis, no clubbing, ROM intact, no edema. [] Neurologic: Alert and oriented x4, no focal deficits noted. Current Patient Data: Labs: Laboratory Tests Test 06/07/21 10:35 White Blood Count 8.9 x10^3/uL (4.0-11.0) Red Blood Count 4.54 x10^6/uL (3.50-5.40) Hemoglobin 12.0 g/dL (12.0-15.5) Hematocrit 37.0 % (36.0-47.0) Mean Corpuscular Volume 82 fL (79-100) Mean Corpuscular Hemoglobin 27 pg (25-35) Mean Corpuscular Hemoglobin Concent 33 g/dL (31-37) Red Cell Distribution Width 14.8 % (11.5-14.5) Platelet Count 346 x10^3/uL (140-400) Neutrophils (%) (Auto) 60 % (31-73) Lymphocytes (%) (Auto) 31 % (24-48) Monocytes (%) (Auto) 6 % (0-9) Eosinophils (%) (Auto) 2 % (0-3) Basophils (%) (Auto) 1 % (0-3) Neutrophils # (Auto) 5.3 x10^3uL (1.8-7.7) Lymphocytes # (Auto) 2.8 x10^3/uL (1.0-4.8) Monocytes # (Auto) 0.6 x10^3/uL (0.0-1.1) Eosinophils # (Auto) 0.2 x10^3/uL (0.0-0.7) Basophils # (Auto) 0.0 x10^3/uL (0.0-0.2) Sodium Level 139 mmol/L (136-145) Potassium Level 4.5 mmol/L (3.5-5.1) Chloride Level 105 mmol/L (98-107) Carbon Dioxide Level 26 mmol/L (21-32) Anion Gap 8 (6-14) Blood Urea Nitrogen 11 mg/dL (7-20) Creatinine 0.7 mg/dL (0.6-1.0) Estimated GFR (Cockcroft-Gault) 97.0 BUN/Creatinine Ratio 16 (6-20) Glucose Level 87 mg/dL (70-99) Calcium Level 8.8 mg/dL (8.5-10.1) Total Bilirubin 0.3 mg/dL (0.2-1.0) Aspartate Amino Transf (AST/SGOT) 15 U/L (15-37) Alanine Aminotransferase (ALT/SGPT) 21 U/L (14-59) Alkaline Phosphatase 60 U/L (46-116) Troponin I High Sensitivity < 4 ng/L (4-50) Total Protein 7.1 g/dL (6.4-8.2) Albumin 3.9 g/dL (3.4-5.0) Albumin/Globulin Ratio 1.2 (1.0-1.7) Vital Signs: Vital Signs Date Time Temp Pulse Resp B/P (MAP) Pulse Ox O2 Delivery O2 Flow Rate FiO2 06/07/21 10:20 98.4 83 16 129/80 (96) 99 Room Air EKG: EKG: EKG Interpreted by Dr. aCmacho at 0921: Regular rate and rhythm 94 bpm with no ectopic beats. QT 312 ms/QTc 405 ms. No STEMI. Radiology/Procedures: Radiology/Procedures: PROCEDURE: CHEST AP ONLY EXAMINATION: Chest radiograph. VIEWS: Single AP view of the chest COMPARISON: 05/03/2020 INDICATION:31 years, Female, chest pain. FINDINGS: Normal cardiomediastinal silhouette. No focal consolidation. No pleural effusion or pneumothorax. No acute osseous process. IMPRESSION: No acute cardiopulmonary process. Electronically signed by: Tashi Carson DO (06/07/2021 10:36 AM) [id number] Heart Score: C/O Chest Pain: Yes HEART Score for Chest Pain: HEART Score for Chest Pain Response (Comments) Value History Slighlty/Non-Suspicious 0 ECG Normal 0 Age < 45 0 Risk Factors 1 or 2 Risk Factors 1 Troponin < Normal Limit 0 Total 1 Risk Factors: Risk Factors: Current smoker, obesity. Risk Scores: Score 0 - 3: 2.5% MACE over next 6 weeks - Discharge Home Score 4 - 6: 20.3% MACE over next 6 weeks - Admit for Clinical Observation Score 7 - 10: 72.7% MACE over next 6 weeks - Early Invasive Strategies Course & Med Decision Making: Course & Med Decision Making Pertinent Labs and Imaging studies reviewed. (See chart for details) Patient is a 31-year-old obese female who presents with right-sided chest and axillary pain that began 3 days ago. She states it was mild on onset and has progressed to a maximum of 6/10 nonradiating. Work-up today will include labs, troponin, EKG, chest x-ray. Cardiac work-up is reassuring. Patient will be treated for muscle strain. She does not wish to have any medications, so she will be given nonpharmacologic muscle strain care instructions. Patient was provided with return precautions. Patient understands and is agreeable to discharge plan. Dragon Disclaimer: Dragon Disclaimer: This electronic medical record was generated, in whole or in part, using a voice recognition dictation system. Departure Departure: Impression: Primary Impression: Pectoralis muscle strain Qualified Codes: S29.011A - Strain of muscle and tendon of front wall of thorax, initial encounter Disposition: HOME / SELF CARE / HOMELESS Condition: STABLE Referrals: PCPJUDITH (PCP) Patient Instructions: Muscle Strain, [id number] Additional Instructions: As discussed, your work-up today did not reveal any emergent or urgent cardiac injury. You will be treated for muscle strain. If you desire, you can take [id number] NSAIDs such as ibuprofen or naproxen for inflammation and discomfort. If you wish not to take medication, there are instructions provided for stretches and nonmedication remedies. Please return to the emergency department if your symptoms worsen or you develop new symptoms. You may also follow-up with your primary care provider for any persistent discomfort. SHAGGY BATRES Jun 07, 2021 10:44
[2021-06-07 11:07] LABS: BASO % 1 % (0-3); EOS # 0.2 x10^3/uL (0.0-0.7); EOS % 2 % (0-3); LYMPH # 2.8 x10^3/uL (1.0-4.8); LYMPH % 31 % (24-48); MEAN CORPUSCULAR HEMOGLOBIN 27 pg (25-35); MEAN CORPUSCULAR HGB CONC 33 g/dL (31-37); MEAN CORPUSCULAR VOLUME 82 fL (79-100); MONO # 0.6 x10^3/uL (0.0-1.1); MONO % 6 % (0-9); NEUT # 5.3 x10^3uL (1.8-7.7); NEUT % 60 % (31-73); PLATELET COUNT 346 x10^3/uL (140-400); RED BLOOD COUNT 4.54 x10^6/uL (3.50-5.40); RED CELL DISTRIBUTION WIDTH 14.8 % (11.5-14.5); WHITE BLOOD COUNT 8.9 x10^3/uL (4.0-11.0)
[2021-06-07 11:17] LABS: CALCIUM 8.8 mg/dL (8.5-10.1); CREATININE 0.7 mg/dL (0.6-1.0); POTASSIUM 4.5 mmol/L (3.5-5.1)
[2021-06-07 11:23] LABS: ALBUMIN 3.9 g/dL (3.4-5.0); ALBUMIN/GLOBULIN RATIO 1.2 (1.0-1.7); TOTAL BILIRUBIN 0.3 mg/dL (0.2-1.0); TOTAL PROTEIN 7.1 g/dL (6.4-8.2)
[2021-06-07 11:40] VITALS: BP 130/76
== END 2021-06-07 11:40 | disposition home or self-care (01) ==
LOC: ER 08:48
DX: S29.011A Strain of muscle and tendon of front wall of thorax, initial encounter (principal); F17.200 Nicotine dependence, unspecified, uncomplicated; Z88.1 Allergy status to other antibiotic agents; X58.XXXA Exposure to other specified factors, initial encounter; Y93.89 Activity, other specified; Y92.89 Other specified places as the place of occurrence of the external cause; Y99.8 Other external cause status
CPT/HCPCS: 36415; 71045; 80053; 84484; 85025; 93005; 99285

== ENCOUNTER → 2021-08-15 | Outpatient (CLI) | payer OTHER ==
--- NOTE | 2021-08-15 14:06 | RAD ---
EXAM: Right breast sonogram. HISTORY: 31-year-old female presents with a palpable right breast lump. TECHNIQUE: Sonographic imaging of the right breast targeted to the site of reported palpable concern was performed. COMPARISON: None. FINDINGS: There is no suspicious finding within the right breast at the 11:00 positions 1 cm and 12 c m from the nipple, corresponding with the sites of reported palpable concern. There is no mass or brannon picious, architectural distortion or posterior shadowing. There are mild ectatic ducts within the sub areolar aspect of the right breast. No intraductal lesion is seen. There are benign axillary lymph no andrez. IMPRESSION: 1. No suspicious sonographic finding. 2. BI-RADS Category 2: Benign finding(s). Continued clinical follow-up of palpable abnormalities is r ecommended. Negative imaging should not preclude the decision to biopsy a palpable abnormality if the re is continuing concern. Diagnostic mammography can also be performed if there is continuing concern . Electronically signed by: Katina Rangel MD (08/15/2021 2:04 PM) [id number]
== END ==
LOC: US 13:34
PROVIDERS: ATTEND Nurse Practitioner Family
DX: N63.11 Unspecified lump in the right breast, upper outer quadrant (principal)
CPT/HCPCS: 76641

== ENCOUNTER 2021-10-10 16:51 | Emergency (ER) | payer OTHER ==
[~2021-10-10] VITALS: Ht 165.1 cm; Wt 100.0 kg
[2021-10-10 17:00] VITALS: BP 154/90
--- NOTE | 2021-10-10 17:16 | PHYS DOC ---
Past History Past Medical History: No Pertinent History Past Surgical History: , Tonsillectomy Additional Past Surgical Histo: PARTIAL HYSTERECTOMY Smoking: Less than 1pk/day Alcohol Use: None Drug Use: None General Adult EDM: Chief Complaint: LACERATION/AVULSION HPI: HPI: Patient is a 31-year-old female presents with superficial laceration to right lower thigh. Patient states she got out of her car and scratched her leg on a broken coffee cup. No bleeding. Range of motion and sensation are intact. Denying pain. Tetanus is up-to-date. Review of Systems: Review of Systems: ROS At least 10 ROS systems have been reviewed and are negative except as documented in the HPI. General: Negative except as outlined in HPI above. Skin: Negative except as outlined in HPI above. HEENT: Negative except as outlined in HPI above. Neck: Negative except as outlined in HPI above. Respiratory: Negative except as outlined in HPI above.. Cardiovascular: Negative except as outlined in HPI above. Abdomen: Negative except as outlined in HPI above. : Negative except as outlined in HPI above. Back/MSK: Negative except as outlined in HPI above. Neuro: Negative except as outlined in HPI above. Psych: Negative except as outlined in HPI above. Allergies: Allergies: Allergies Coded Allergies Type Severity Reaction Last Updated Verified cephalexin Allergy Severe "I GET HIVES REALLY BAD" 04/25/14 No Physical Exam: PE: Constitutional: Well developed, well nourished, no acute distress, non-toxic appearance. [] HENT: Normocephalic, atraumatic, bilateral external ears normal, oropharynx moist, no oral exudates, nose normal. [] Eyes: PERRLA, EOMI, conjunctiva normal, no discharge. [] Neck: Normal range of motion, no tenderness, supple, no stridor. [] Cardiovascular:Heart rate regular rhythm, no murmur [] Lungs & Thorax: Bilateral breath sounds clear to auscultation [] Abdomen: Bowel sounds normal, soft, no tenderness, no masses, no pulsatile masses. [] Skin: Superficial 1 cm, laceration to right lower thigh. Tenderness to the area. No bleeding Back: No tenderness, no CVA tenderness. [] Extremities: Right thigh tenderness, no cyanosis, no clubbing, ROM intact, no edema. [] Neurologic: Alert and oriented X 3, normal motor function, normal sensory function, no focal deficits noted. [] Psychologic: Affect normal, judgement normal, mood normal. [] Current Patient Data: Vital Signs: Vital Signs Date Time Temp Pulse Resp B/P (MAP) Pulse Ox O2 Delivery O2 Flow Rate FiO2 10/10/21 17:00 98.2 96 18 154/90 (111) 98 Room Air EKG: EKG: [] Radiology/Procedures: Radiology/Procedures: [] Heart Score: C/O Chest Pain: No Risk Factors: Risk Factors: DM, Current or recent (<one month) smoker, HTN, HLP, family history of CAD, obesity. Risk Scores: Score 0 - 3: 2.5% MACE over next 6 weeks - Discharge Home Score 4 - 6: 20.3% MACE over next 6 weeks - Admit for Clinical Observation Score 7 - 10: 72.7% MACE over next 6 weeks - Early Invasive Strategies Course & Med Decision Making: Course & Med Decision Making Pertinent Labs and Imaging studies reviewed. (See chart for details) 31-year-old female presents with superficial laceration to right lower thigh, patient cut her leg on a broken coffee cup. Bleeding is controlled. Mild tenderness. No indication for sutures or Dermabond. Wound was cleaned and covered with gauze. Advised patient to keep the cut clean to avoid infection. Tetanus is up-to-date. Dragon Disclaimer: Jason Disclaimer: This electronic medical record was generated, in whole or in part, using a voice recognition dictation system. Departure Departure: Impression: Primary Impression: Abrasion Disposition: HOME / SELF CARE / HOMELESS Condition: STABLE Referrals: PCP,NO (PCP) Patient Instructions: Abrasion, [id number] Additional Instructions: You were seen in the emergency room for superficial laceration to your right leg. There was no indication for sutures to be applied. Keep the area clean and covered to avoid infection. EMERGENCY DEPARTMENT GENERAL DISCHARGE INSTRUCTIONS Thank you for coming to [facility] (ED) today and trusting us with you care. We trust that you had a positivie experience in our Emergency Department. If you wish to speak to the department management, you may call the director at [phone]. YOUR FOLLOW UP INSTRUCTIONS ARE FOLLOWS: 1. Do you have a private Doctor? If you do not have a private doctor, please ask for a resource list of physicians or clinics that may be able to assist you with follow up care. 2. The Emergency Physician has interpreted your x-rays. The X-Ray specialist will also review them. If there is a change in the findings, you will be notified in 48 hours when at all possible. 3. A lab test or culture has been done, your results will be reviewed and you will be notified if you need a change in treatment. ADDITIONAL INSTRUCTIONS AND INFORMATION: 1. Your care today has been supervised by a physician who is specially trained in emergency care. Many problems require more than one evaluation for a complete diagnosis and treatment. We recommend that you schedule your follow up appointment as recommended to ensure complete treatment of you illness or injury. If you are unable to obtain follow up care and continue to have a problem, or if your condition worsens, we recommend that you return to the ED. 2. We are not able to safely determine your condition over the phone nor are we able to give sound medical advice over the phone. For these safety reasons, if you call for medical advice we will ask you to come to the ED for further evaluation. 3. If you have any questions regarding these discharge instructions please call the ED at [phone]. SAFETY INFORMATION: In the interest of safety, wellness, and injury prevention; we encourage you to wear your sealbelt, if you smoke; quite smoking, and we encourage family to use a protective helmet for bicycling and other sporting events that present an increased risk for head injury. IF YOUR SYMPTOMS WORSEN OR NEW SYMPTOMS DEVELOP, OR YOU HAVE CONCERNS ABOUT YOUR CONDITION; OR IF YOUR CONDITION WORSENS WHILE YOU ARE WAITING FOR YOUR FOLLOW UP APPOINTMENT; EITHER CONTACT YOUR PRIMARY CARE DOCTOR, THE PHYSICIAN WHOSE NAME AND NUMBER YOU WERE GIVEN, OR RETURN TO THE ED IMMEDIATELY. JUAN LAMBERT APRN October 10, 2021 17:16
== END 2021-10-10 17:32 | disposition home or self-care (01) ==
LOC: ER 16:51
DX: S71.111A Laceration without foreign body, right thigh, initial encounter (principal); F17.200 Nicotine dependence, unspecified, uncomplicated; Z88.1 Allergy status to other antibiotic agents; W26.8XXA Contact with other sharp object(s), not elsewhere classified, initial encounter; Y93.89 Activity, other specified; Y92.89 Other specified places as the place of occurrence of the external cause; Y99.8 Other external cause status
CPT/HCPCS: 99282